=== PATIENT | male | born 1955 | race Hispanic/Latino ===

== ENCOUNTER 2016-02-28 14:24 | Inpatient (IN) | payer OTHER ==
[2016-02-28] MEDS ORDERED: SENOKOT PO PRN (14:28)
[2016-02-28] MEDS ORDERED: D50W (25GM) IV PRN (14:28)
[2016-02-28] MEDS ORDERED: TYLENOL PO PRN (14:28)
--- NOTE | 2016-02-28 16:18 | History and Physical Report ---
History of Present Illness Date: 02/28/16 Referring Facility: [facility] Date of admission: 02/28/16 14:24 Chief Complaint: acute respiratory failure History of present illness: POST ADMISSION PHYSICIAN EVALUATION ONSET DATE: 12/28/2015 IMPAIRMENT GROUP CODE: 16 ETIOLOGIC DIAGNOSIS: Debility secondary to acute respiratory failure STATUS CHANGES SINCE PREADMISSION SCREENING: PAS has been reviewed. In comparison, pt reports slowly improving strength; improving po intake, however, eating small frequent meals; now off TPN and advanced to regular diet with thin liquids. He remains on oxygen via nasal cannula. Pt continues with functional deficits; remains an appropriate candidate for IPR admission. PREVIOUS FUNCTIONAL STATUS: Independent with gait, transfers, ADLs CURRENT FUNCTIONAL STATUS: Per PAS, S/u to modA for ADLS; modA for transfers; PT/OT and swallowing evaluation to be completed in AM to update functional status HPI 60 y.o. male recently diagnosed with non-Hodgkin's lymphoma in September 2015 and undergoing intermittent chemotherapy, who presented to [facility] secondary to progressive worsening of shortness of breath. Pt treated for acute respiratory failure due to bilateral pneumocystitis pneumonia; requiring intubation, treated with bactrim and high dose steroids. Acute care course was further complicated by noted bowel perforation, ? secondary to chemotherapy, requiring ex lap, abdominal washout, and partial gastrectomy; pleural effusion, s/p thoracentesis. Pt was unable to be weaned from the vent; transferred to [facility] on 01/30/2016. Pt completed course of ABX while on LTAC ; weaned off vent to nasal cannula; progressed from TPN to regular diet; initiated on lopressor due to tachycardia; wound care for stage 2 sacral decubitus ulcer. Pt noted to have significant decline in functional mobility. Pt is now admitted to IRU for aggressive therapies and ongoing medical management. Past History Past Medical History: cancer (large B cell lymphoma), hypertension, hypothyroidism, other (PTSD, chron's disease, fatty liver, gallstones, kidney stones, BPH, splenic mass, left renal mass) Past Surgical History: tonsillectomy, Other (spleen biopsy, multiple thoracentesis, port placement, bone marrow biopsy) Social history: , lives with family. denies: smoking (quit 32 years ago) , alcohol abuse Family history: CAD, diabetes, hypertension, other (renal disease) Medications and Allergies Active Meds: Active Medications Acetaminophen (Tylenol) 650 mg PO Q4H PRN PRN Reason: Pain MILD(1-3)/Fever >100.5/ESPARZA Dextrose (D50w (25gm)) 50 ml IV PRN PRN PRN Reason: Hypoglycemia Escitalopram Oxalate (Lexapro) 10 mg PO QDAY SEVEN Finasteride (Proscar) 5 mg PO QDAY SEVEN Heparin Sodium (Porcine) (Heparin) 5,000 unit SUB-Q Q8HR SEVEN Insulin Human Regular (Novolin R) 0 units SUB-Q ACHS SEVEN PRN Reason: Protocol Lactobacillus Rhamnosus (Culturelle) 2 each PO QDAY SEVEN Levothyroxine Sodium (Synthroid) 125 mcg PO DAILY@0600 SEVEN Metoprolol Tartrate (Lopressor) 50 mg PO BID SEVEN Pantoprazole Sodium (Protonix) 40 mg PO BID SEVEN Senna (Senokot) 8.6 mg PO Q12H PRN PRN Reason: Laxative Effect Sodium Bicarbonate (Sodium Bicarbonate) 1,300 mg PO BID SEVEN Tamsulosin HCl (Flomax) 0.4 mg PO QDAY SEVEN Trazodone HCl (Desyrel) 25 mg PO QHS PRN PRN Reason: Insomnia Review of Systems All systems: negative Constitutional: poor appetite Ears, nose, mouth and throat: no headache Cardiovascular: no chest pain, no lightheadedness Respiratory: dyspnea on exertion, no cough, no shortness of breath Gastrointestinal: no nausea, no vomiting, no constipation Genitourinary Male: no dysuria Musculoskeletal: gait dysfunction Neurological: weakness Psychiatric: anxiety, insomnia Exam - Constitutional General appearance: no acute distress, obese, other ( present) - EENT Eyes: EOM intact ENT: hearing intact - Neck Neck: supple, normal ROM - Respiratory Respiratory effort: normal Respiratory: bilateral: CTA - Cardiovascular Rhythm: regular Heart Sounds: Present: S1 & S2 - Extremities Extremities: No edema - Gastrointestinal General gastrointestinal: Present: soft, non-tender, non-distended, normal bowel sounds - Integumentary Integumentary: Present: erythema (stage 2 sacral ulcer) - Musculoskeletal Musculoskeletal: strength equal bilaterally - Neurologic Neurologic: CNII-XII intact, moves all extremities, other (sensation grossly intact) - Psychiatric Psychiatric: appropriate mood/affect, intact judgment & insight, memory intact, cooperative Assessment and Plan Assessment and plan: 60 y.o. male with diffuse large B-cell lymphoma admitted to IRU with general debility s/p prolonged acute care and LTACH admissions for Pneumocystis jirovecii pneumonia and gastric perforation with diffuse peritonitis; respiratory failure, now on nasal cannula. The patient is medically stable, however, requires ongoing medical management. Pt is appropriate for inpatient rehabilitation admission and is thought to be able to tolerate at least 3 hours of therapy a day, 5 days a week including 1 hour of physical therapy, 1 hour of occupational therapy, and 1 hour of speech therapy. Patient is able to understand and follow basic directions and has attainable rehab goals. Potential barriers/complications include falls, aspiration, respiratory distress /failure, anxiety/depression, DVT, PE, recurrent pleural effusion, hypotension, syncope. Plan 1. Rehabilitation- Pt will undergo multidisciplinary/integrative rehab PT/OT/ PLASTER FOREMAN, Nursing. Areas to be addressed include, but are not limited to PT for mobility, strengthening, transfer training, ROM, endurance, stairs, balance; OT for ADLs, household tasks, adaptive equipment; PLASTER FOREMAN for swallowing and cognitive evaluation; Nursing for carryover of therapies, pain control, education, skin integrity, medication management, bowel/bladder management; Nutrition as needed ; retail services professional for discharge planning and equipment needs. Potential interventions include appropriate assistive device or adaptive equipment. Expected overall level of functional improvement by discharge is Shar to supervision for ADLs, gait, and transfers. Pt will tentatively be discharged home with outpatient PT. Estimated length of stay is 1-2 weeks. 2. Debility- aggressive PT/OT to address decline in functional independence with self cares and mobility; will also have PLASTER FOREMAN complete swallowing evaluation as pt was recently transitioned to thin liquids without complete PLASTER FOREMAN evaluation. Also will have PLASTER FOREMAN complete cognitive screening as pt reports some memory deficits since hospitalization. 3. acute respiratory failure- pt remains on oxygen via nasal cannula; not on oxygen prior to recent hospital course; will wean as tolerated; completed course of ABX while on LTAC 4. Obtain labs in AM- anemia, acute renal failure and blood sugars treated while in acute care and LTACH; pt denies any history of DM, however, was on high dose steroids. Will obtain HgA1c in AM 5. Anxiety/PTSD- pt on lopressor due to tachycardia likely secondary to anxiety ; however, blood pressure is running low on admission. Will reduce dose and continue to follow; avoid hypotension; continue lexapro 6. hypothyroidism- continue levothyroixine 7. GI/DVT px- protonix/heparin - Patient Problems (1) Debility Current Visit: Yes Status: Acute (2) Acute respiratory failure Current Visit: Yes Status: Acute Qualifiers: Respiratory failure complication: hypoxia Qualified Code(s): J96.01 - Acute respiratory failure with hypoxia (3) Anxiety Current Visit: Yes Status: Acute (4) PTSD (post-traumatic stress disorder) Current Visit: Yes Status: Acute (5) Hypothyroid Current Visit: Yes Status: Acute Qualifiers: Hypothyroidism type: acquired Qualified Code(s): E03.9 - Hypothyroidism, unspecified
[2016-02-28] MEDS: SODIUM BICARBONATE PO SCH (22:00)
[2016-02-28] MEDS: PROTONIX PO SCH (22:00)
[2016-02-28] MEDS: HEPARIN SUB-Q SCH (22:00)
[2016-02-28] MEDS ORDERED: LOPRESSOR PO SCH (22:00)
[2016-02-28] MEDS: LOPRESSOR PO SCH (22:00)
[2016-02-29 05:20] LABS: Alanine Aminotransferase 13 units/L (7-56); Albumin 2.5 g/dL (3.9-5); Alkaline Phosphatase 82 units/L (35-129); Anion Gap 16 mmol/L; BUN/Creatinine Ratio 21.42; Bilirubin,Total 0.2 mg/dL (0.1-1.2); Blood Urea Nitrogen 15 mg/dL (9-20); Calcium 8.4 mg/dL (8.4-10.2); Carbon Dioxide 28 mmol/L (22-30); Chloride 96.5 mmol/L (98-107); Glucose 99 mg/dL (75-100); Potassium 3.4 mmol/L (3.6-5.0); Sodium 137 mmol/L (137-145); Total Protein 5.1 g/dL (6.3-8.2)
[2016-02-29 05:23] LABS: Basophils % (Auto) 0.6 % (0.0-1.8); Eosinophils % (Auto) 3.6 % (0.0-4.3); Hematocrit 25.7 % (35.5-45.6); Hemoglobin 8.5 gm/dl (11.8-15.2); Mean Corpuscular HGB Conc 33 % (32-34); Mean Corpuscular Hemoglobin 29 pg (28-32); Mean Corpuscular Volume 87 fl (84-94); Platelet Count 353 K/mm3 (140-440); Red Blood Count 2.97 M/mm3 (3.65-5.03); Red Cell Distribution Width 16.5 % (13.2-15.2); White Blood Count 13.3 K/mm3 (4.5-11.0)
[2016-02-29] MEDS: HEPARIN SUB-Q SCH ×3 (06:00→22:21)
[2016-02-29] MEDS: SYNTHROID PO SCH (06:51)
[2016-02-29] MEDS: LOPRESSOR PO SCH ×2 (08:00→22:19)
[2016-02-29] MEDS: SODIUM BICARBONATE PO SCH ×2 (09:34→22:16)
[2016-02-29] MEDS: CULTURELLE PO SCH (09:36)
[2016-02-29] MEDS: PROSCAR PO SCH (09:36)
[2016-02-29] MEDS: FLOMAX PO SCH (09:37)
[2016-02-29] MEDS: LEXAPRO PO SCH (09:37)
[2016-02-29] MEDS: PROTONIX PO SCH ×2 (09:38→22:20)
[2016-02-29] MEDS: K-DUR PO SCH ×2 (09:45→18:38)
--- NOTE | 2016-02-29 15:19 | Progress Note ---
Assessment and Plan 60 y.o. male with diffuse large B-cell lymphoma, general debility s/p prolonged acute care and LTACH admissions for Pneumocystis jirovecii pneumonia and gastric perforation with diffuse peritonitis; respiratory failure, now on nasal cannula - Debility- pt tolerated therapies on today; noted to have some anxiety at times , low endurance; continue PT/OT to address gait dysfunction, decreased balance and endurance; pending MBS to evaluate for dysphagia and r/o silent aspiration with history of recent intubation/hoarse voice - acute respiratory failure- wean oxygen as pt not on at home prior to admission - acute blood loss anemia- follow - leukocytosis- check UA, C&S; afebrile; follow - Anxiety/PTSD- low BP this AM; lopressor again reduced to avoid hypotension; pt continues with anxiety induced tachycardia intermittently; continue lexapro - hypokalemia- KDur; follow - GI/DVT px- protonix/heparin - Patient Problems (1) Debility Current Visit: Yes Status: Acute (2) Acute respiratory failure Current Visit: Yes Status: Acute Qualifiers: Respiratory failure complication: hypoxia Qualified Code(s): J96.01 - Acute respiratory failure with hypoxia (3) Anxiety Current Visit: Yes Status: Acute (4) PTSD (post-traumatic stress disorder) Current Visit: Yes Status: Acute (5) Acute blood loss anemia Current Visit: Yes Status: Acute (6) Hypokalemia Current Visit: Yes Status: Acute (7) Unsteady gait Current Visit: Yes Status: Acute Subjective Date of service: 02/29/16 Principal diagnosis: Debility Interval history: Pt seen in gym and dining room on today; IPR F/U, s/p acute respiratory failure secondary to pneumonia and gastric perforation with diffuse peritonitis. Pt reports sleeping ok on last night; labs reviewed with both patient and ; educated on process of weaning down oxygen Objective - Constitutional Vitals: Vital Signs - 12hr 02/29/16 02/29/16 08:00 10:00 Temperature 98.2 F Pulse Rate [ 100 H Right Brachial] Respiratory 20 Rate Blood Pressure 98/66 [Right Arm] O2 Sat by Pulse 94 94 Oximetry General appearance: Present: no acute distress - EENT Eyes: EOM intact ENT: hearing intact - Neck Neck: supple, normal ROM - Respiratory Respiratory effort: normal Respiratory: bilateral: CTA - Cardiovascular Heart Sounds: Present: S1 & S2 (tachy) - Gastrointestinal General gastrointestinal: Present: non-distended, normal bowel sounds - Integumentary Integumentary: clear - Neurologic Neurologic: CNII-XII intact, moves all extremities - Psychiatric Psychiatric: appropriate mood/affect, cooperative - Allied health notes Allied health notes reviewed: PT (supervision to modA for bed mobility; modA for transfers and gait), OT (s/u to maxA for ADLs) - Labs CBC & Chem 7: 02/29/16 04:24 02/29/16 04:24 Labs: Abnormal lab results 02/28/16 02/29/16 02/29/16 Range/Units 17:27 04:24 04:24 WBC 13.3 H (4.5-11.0) K/mm3 RBC 2.97 L (3.65-5.03) M/mm3 Hgb 8.5 L (11.8-15.2) gm/dl Hct 25.7 L (35.5-45.6) % RDW 16.5 H (13.2-15.2) % [place] % (Auto) 14.4 H (0.0-7.3) % [place] # 1.9 H (0.0-0.8) K/mm3 Eos # 0.5 H (0.0-0.4) K/mm3 Seg Neutrophils # 9.0 H (1.8-7.7) K/mm3 Potassium 3.4 L (3.6-5.0) mmol/L Chloride 96.5 L (98-107) mmol/L Creatinine 0.7 L (0.8-1.5) mg/dL POC Glucose 121 H (70-105) Total Protein 5.1 L (6.3-8.2) g/dL Albumin 2.5 L (3.9-5) g/dL Prealbumin 0.140 L (0.200-0.400) g/L 02/29/16 Range/Units 11:31 WBC (4.5-11.0) K/mm3 RBC (3.65-5.03) M/mm3 Hgb (11.8-15.2) gm/dl Hct (35.5-45.6) % RDW (13.2-15.2) % [place] % (Auto) (0.0-7.3) % [place] # (0.0-0.8) K/mm3 Eos # (0.0-0.4) K/mm3 Seg Neutrophils # (1.8-7.7) K/mm3 Potassium (3.6-5.0) mmol/L Chloride (98-107) mmol/L Creatinine (0.8-1.5) mg/dL POC Glucose 111 H (70-105) Total Protein (6.3-8.2) g/dL Albumin (3.9-5) g/dL Prealbumin (0.200-0.400) g/L
[2016-02-29 16:25] LABS: Bilirubin,Urine NEG (Negative); Blood,Urine SM (Negative); Ketones,Urine NEG (Negative); Leukocyte Esterase,Urine LG (Negative); Nitrite,Urine POS (Negative); Protein,Urine <15 mg/dL mg/dL (Negative); Urobilinogen,Urine < 2.0 mg/dL (<2.0)
[2016-02-29 16:26] LABS: Bacteria,Urine 2+ /HPF (Negative)
[2016-02-29] MEDS: DESYREL PO PRN (22:21)
--- NOTE | 2016-03-01 00:53 | Admit Criteria Form ---
Admission Criteria Documentation: RESPIRATORY FAILURE GRG Clinical Indications for Admission to Inpatient Care (Place 'X' for any and all applicable criteria): Hospital admission is needed for appropriate care of the patient because of acute respiratory failure or insufficiency as indicated by ANY ONE of the following(1)(2)(3)(4)(5)(6)(7)(8): [ X]I. Mechanical ventilation needed (acute invasive or noninvasive) [ ]II. Severe ventilation deficit as indicated by ANY ONE of the following (9) [ ]a) Respiratory acidosis (pH less than 7.32 and partial pressure of carbon dioxide greater than 40 mm Hg (5.3 kPa)) [ ]b) Partial pressure of carbon dioxide greater than 44 mm Hg (5.9 kPa ) (new) [ ]c) Airflow measurements less than 25% of predicted (eg, peak expiratory flow rate less than 100 L/minute) [ ]d) Forced vital capacity less than 15 mL/kg of ideal body weight, or 50% decrease in vital capacity from baseline [ ]III. Noncardiac pulmonary edema not resolving with rapid emergency treatment (8) [ ]IV. Severe respiratory distress as indicated by ANY ONE of the following: [ ]a) Severe tachypnea (respiratory rate greater than 30, greater than 45 for 6-month-old, greater than 60 for ) [ ]b) Severe hypoxemia (partial pressure of oxygen less than 50 mm Hg ( 6.7 kPa) on greater than 50% oxygen or partial pressure of oxygen to FIO2 ratio less than 200) [ ]c) Mental status deterioration from respiratory disease [ ]V. Airway obstruction or inadequate protection [A](10)(11) The original [employer] content created by [employer] has been revised. The portions of the content which have been revised are identified through the use of italic text or in bold, and [employer] has neither reviewed nor approved the modified material. All other unmodified content is copyright [employer]. Please see references footnoted in the original [employer] edition 2016 Admission Criteria Met: Yes
[2016-03-01] MEDS ORDERED: K-DUR PO SCH (05:00)
[2016-03-01] MEDS: SYNTHROID PO SCH (05:57)
[2016-03-01] MEDS: K-DUR PO SCH (05:57)
[2016-03-01] MEDS: LOPRESSOR PO SCH ×2 (08:30→22:48)
[2016-03-01] MEDS: LEXAPRO PO SCH (10:06)
[2016-03-01] MEDS: SODIUM BICARBONATE PO SCH ×2 (10:06→22:47)
[2016-03-01] MEDS: PROTONIX PO SCH ×2 (10:07→22:47)
[2016-03-01] MEDS: FLOMAX PO SCH (10:07)
[2016-03-01] MEDS: PROSCAR PO SCH (10:07)
[2016-03-01] MEDS: CULTURELLE PO SCH (10:08)
--- NOTE | 2016-03-01 11:11 | Fluoroscopy Report ---
Limited barium swallow: Examination performed in conjunction with speech therapy. Imaging of the patient in the sitting position laterally with multiple consistencies of material fed to the patient. There is a normal swallowing mechanism. No penetration or aspiration. Of note is virtual loss of the C5-6 disc space.
--- NOTE | 2016-03-01 12:41 | IRU Plan of Care ---
Interdisciplinary Plan of Care - IP IRU INTERDISCIPLINARY PLAN: [facility] Inpatient Rehab Unit Plan of Care IRU Interdisciplinary Care Plan Start: 02/28/16 14: 50 Freq: Admission then PRN Status: Active Document 03/01/16 09:33 DB (Rec: 03/01/16 09:43 DB [id number]) Interdisciplinary Problem List Interdisciplinary Problem List Interdisciplinary Problem List Impaired Eating/Swallowing Query Text:Answers will Trigger Problems Impaired Bathing/Grooming and Outcomes on Worklist. Impaired Dressing Impaired Mobility Impaired Transfers Impaired Toileting Impaired Nutrition Pain Management Knowledge Deficits Impaired Skin/Tissue Integrity Impaired Safety Medications Education Impaired Oxygenation IRU Interdisciplinary Care Plan Therapy Services Therapy Services Will Include: Physical Therapy Query Text:Patient will be seen for a Occupational Therapy minimum of 3 hours of daily therapy 5 Speech Therapy out of 7 days a week. Therapy intensity may be adjusted within a 7 consecutive day period to effectively serve the individual needs of the patient. Treatment Frequency/Intensity/Duration Treatment Frequency 5 days per week Treatment Intensity 1 hour per discipline (PT/OT/ INSURANCE RISK ANALYST) daily Treatment Duration 14-21 days Problem Area: Eating/Swallowing Eating/Swallowing Outcomes Consume Least Restrictive Diet Eating/Swallowing Interventions Dysphagia Training Patient/Caregiver Education Problem Area: Bathing/Grooming Bathing/Grooming Outcomes Improve Bush w/ Grooming Improve Bush w/ Bathing Bathing/Grooming Interventions ADL Training Use of Assistive Devices Therapeutic Exercise Therapeutic Activity Balance Work Activity Tolerance Work Patient/Caregiver Education Problem Area: Dressing Dressing Outcomes Improve Bush w/ UB Dressing Improve Bush w/ LB Dressing Dressing Interventions ADL Training Use of Assistive Devices Therapeutic Exercise Balance Work Patient/Caregiver Education Problem Area: Mobility Mobility Outcomes Improve Bush w/ Bed Mobility Improve Bush w/ Ambulation Improve Bush w/ Stairs /Curb Improve Bush w/ Wheelchair Mobility Interventions Therapeutic Exercise Neuromuscular Re-Ed. Modalities Use of Assistive Devices Patient/Caregiver Education Bed Mobility Work Gait Training W/C Mobility Work Problem Area: Transfers Transfers Outcomes Improve Bush w/ Bed Transfers Improve Bush w/ Toilet Transfers Improve Bush w/ Tub/ Shower Transfers Improve Bush w/ Car Transfers Transfers Interventions Transfer Training Therapeutic Exercise Activity Tolerance Work Modalities Use of Assistive Devices Patient/Caregiver Education Problem Area: Bowel/Bladder Managment Bowel/Bladder Outcomes Remain free of UTI Bowel/Bladder Interventions Patient/Caregiver Education Problem Area: Toileting Toileting Outcomes Improve Bush w/ Toileting Toileting Interventions ADL Training Balance Work Use of Assistive Devices Patient/Caregiver Education Problem Area: Nutrition Nutrition Outcomes Understand and Comply w/ Diet Improve/Maintain Oral Intake Nutrition Interventions Nutritional Counseling Monitor Nutrient Intake Patient/Caregiver Education Problem Area: Comprehension Comprehension Outcomes Comprehension Interventions Problem Area: Expression Expression Outcomes Expression Interventions Problem Area: Problem Solving Problem Solving Outcomes Problem Solving Interventions Problem Area: Memory Memory Outcomes Memory Interventions Problem Area: Pain Management Pain Management Outcomes Demonstrate/Verbalize Pain Strategies Pain Management Interventions Positioning/Turning Patient/Caregiver Education Problem Area: Knowledge Deficits Knowledge Deficits Outcomes Verbalize Precautions Knowledge Deficits Interventions Medication Use Education Safety Education Problem Area: Skin/Tissue Integrity Skin/Tissue Integrity Outcomes Exhibit Healing of Wound/ Incision Demonstrate Understanding of Pressure Relief Skin/Tissue Integrity Interventions Skin/Wound Care Pressure Relief Instruction Positioning/Turning Problem Area: Social Interaction Social Interaction Outcomes Social Interaction Interventions Problem Area: Adjustment to Disability Adjustment to Disability Outcomes Adjustment to Disability Interventions Problem Area: Discharge Concerns Discharge Concerns Outcomes Discharge Home w/ Necessary Equipment Have Home Health/Outpatient Services Discharge Concerns Interventions Discharge Planning Family/Caregiver Conference Family/Caregiver Training Problem Area: Community Reintegration Community Reintegration Outcomes Demonstrate Understanding of Community Resources Community Reintegration Interventions Provide Community Resources Problem Area: Home Management Home Management Outcomes Improve Bush w/ Home Management Home Management Interventions Activity Tolerance Work Patient/Caregiver Education Problem Area: Safety Safety Outcomes Provide Safe Environment Safety Interventions Identify Fall Risk [place] Pt. to Environment Reduce Environmental Hazards Problem Area: Medication Education Medication Education Outcomes Patient/Caregiver will Verbalize Understanding of Medications Medication Education Interventions Explain Administration/Side Effects/Interactions Problem Area: Diabetes Education Diabetes Education Outcomes Diabetes Education Interventions Problem Area: Oxygenation Oxygenation Outcomes Maintain Adequate Oxygenation Oxygenation Interventions Assess Respiratory Status Encourage Coughing and Deep Breathing Problem Area: Cardiovascular Cardiovascular Outcomes Cardiovascular Interventions Physician Only Medical Prognosis and Rehabilitation Patient demonstrates good Potential (Completed by Physician) rehab potential. Medical Prognosis: Good This plan of care has been developed based on the findings from the pre- admission assessment, post admission physician evaluation, information gathered from the assessments from all therapy disciplines and other pertinent clinicians. The plan of care has been reviewed and discussed in collaboration with the interdisciplinary team. The plan of care will be reviewed and updated at least weekly. 60 y.o. male with diffuse large B-cell lymphoma admitted to IRU with general debility s/p prolonged acute care and LTACH admissions for Pneumocystis jirovecii pneumonia and gastric perforation with diffuse peritonitis; respiratory failure, now on nasal cannula. The patient remains at risk for falls, aspiration, respiratory distress/failure, anxiety/depression, DVT, PE, recurrent pleural effusion, hypotension, syncope. Continue to attempt to wean oxygen as pt is not on at home; noted to desat into 80s with gait training on today. Will continue to follow labs- potassium, H/H, and renal function. Pt is tolerating therapies and is very motivated to participate. Pt remains an appropriate candidate for IPR course.
--- NOTE | 2016-03-01 12:41 | Progress Note ---
Assessment and Plan 60 y.o. male with diffuse large B-cell lymphoma, general debility s/p prolonged acute care and LTACH admissions for Pneumocystis jirovecii pneumonia and gastric perforation with diffuse peritonitis; respiratory failure, now on nasal cannula - Debility- trials off oxygen today; noted to desat into 80s with and without oxygen - unsteady gait- continue gait training; 10 feet on evaluation, ambulated 30 feet on today; encouraged to attempt to improve gait distance daily - acute respiratory failure- wean oxygen as tolerated - acute blood loss anemia- labs in Am - leukocytosis- labs in AM; follow for Urine culture - Anxiety/PTSD- lopressor for anxiety induced tachycardia; BP stable at current dose; continue lexapro - hypokalemia- recheck in AM - GI/DVT px- protonix/heparin - Patient Problems (1) Debility Current Visit: Yes Status: Acute (2) Acute respiratory failure Current Visit: Yes Status: Acute Qualifiers: Respiratory failure complication: hypoxia Qualified Code(s): J96.01 - Acute respiratory failure with hypoxia (3) Anxiety Current Visit: Yes Status: Acute (4) PTSD (post-traumatic stress disorder) Current Visit: Yes Status: Acute (5) Acute blood loss anemia Current Visit: Yes Status: Acute (6) Hypokalemia Current Visit: Yes Status: Acute (7) Unsteady gait Current Visit: Yes Status: Acute Subjective Date of service: 03/01/16 Principal diagnosis: Debility Interval history: Pt seen in room on today; IPR F/U, s/p acute respiratory failure secondary to pneumonia and gastric perforation with diffuse peritonitis. Pt reports having a great day on today; continues with shortness of breath and fatigue with increased activity, however, improving Objective - Constitutional Vitals: Vital Signs - 12hr 03/01/16 03/01/16 07:27 08:00 Temperature 97.9 F Pulse Rate [ 105 H Right Brachial] Respiratory 20 Rate Blood Pressure 107/67 [Right Arm] O2 Sat by Pulse 91 92 Oximetry General appearance: Present: no acute distress, obese - EENT Eyes: EOM intact ENT: hearing intact - Neck Neck: supple, normal ROM - Respiratory Respiratory effort: normal Respiratory: bilateral: CTA - Cardiovascular Heart Sounds: Present: S1 & S2 Extremities: No edema - Gastrointestinal General gastrointestinal: Present: soft, non-tender, non-distended, normal bowel sounds - Integumentary Integumentary: clear - Neurologic Neurologic: CNII-XII intact, moves all extremities - Psychiatric Psychiatric: appropriate mood/affect, cooperative - Allied health notes Allied health notes reviewed: PT (modA for transfers; [place] for gait up to 30 feet), OT (modA for transfers; desat into 80s without oxygen) - Labs CBC & Chem 7: 02/29/16 04:24 02/29/16 04:24 Labs: Abnormal lab results 02/29/16 Range/Units 16:06 Urine WBC (Auto) 14.0 H (0.0-6.0) /HPF
[2016-03-01] MEDS: HEPARIN SUB-Q SCH (15:42)
[2016-03-02 04:44] LABS: Hemoglobin 8.6 gm/dl (11.8-15.2); Mean Corpuscular HGB Conc 33 % (32-34); Mean Corpuscular Hemoglobin 29 pg (28-32); Mean Corpuscular Volume 87 fl (84-94); Platelet Count 348 K/mm3 (140-440); Red Blood Count 2.98 M/mm3 (3.65-5.03); Red Cell Distribution Width 16.4 % (13.2-15.2); White Blood Count 10.7 K/mm3 (4.5-11.0)
[2016-03-02] MEDS: SYNTHROID PO SCH (06:16)
[2016-03-02] MEDS: HEPARIN SUB-Q SCH ×3 (06:17→22:24)
[2016-03-02] MEDS: FLOMAX PO SCH (08:57)
[2016-03-02] MEDS: SODIUM BICARBONATE PO SCH ×2 (08:57→22:21)
[2016-03-02] MEDS: LEXAPRO PO SCH (08:57)
[2016-03-02] MEDS: PROTONIX PO SCH ×2 (08:57→22:21)
[2016-03-02] MEDS: PROSCAR PO SCH (08:57)
[2016-03-02] MEDS: LOPRESSOR PO SCH ×2 (09:00→22:22)
[2016-03-02] MEDS: CULTURELLE PO SCH (09:01)
[2016-03-02] MEDS: DESYREL PO PRN (22:21)
[2016-03-03] MEDS: SYNTHROID PO SCH (06:13)
[2016-03-03] MEDS: HEPARIN SUB-Q SCH ×3 (06:51→22:52)
[2016-03-03] MEDS: LOPRESSOR PO SCH ×2 (08:00→21:35)
[2016-03-03] MEDS: PROTONIX PO SCH ×2 (08:27→21:37)
[2016-03-03] MEDS: FLOMAX PO SCH (08:28)
[2016-03-03] MEDS: PROSCAR PO SCH (08:29)
[2016-03-03] MEDS: SODIUM BICARBONATE PO SCH ×2 (08:29→21:35)
[2016-03-03] MEDS: LEXAPRO PO SCH (08:29)
[2016-03-03] MEDS: CULTURELLE PO SCH (08:30)
[2016-03-03] MEDS: MACROBID PO SCH (21:40)
[2016-03-03] MEDS: DESYREL PO PRN (21:40)
[2016-03-04] MEDS: SYNTHROID PO SCH (06:00)
[2016-03-04] MEDS: HEPARIN SUB-Q SCH ×4 (07:00→22:03)
[2016-03-04] MEDS: LOPRESSOR PO SCH ×2 (08:20→22:00)
[2016-03-04] MEDS: FLOMAX PO SCH (09:37)
[2016-03-04] MEDS: LEXAPRO PO SCH (09:37)
[2016-03-04] MEDS: PROTONIX PO SCH ×2 (09:38→21:51)
[2016-03-04] MEDS: PROSCAR PO SCH (09:38)
[2016-03-04] MEDS: CULTURELLE PO SCH (09:38)
[2016-03-04] MEDS: SODIUM BICARBONATE PO SCH ×2 (09:38→21:50)
[2016-03-04] MEDS: MACROBID PO SCH (09:38)
--- NOTE | 2016-03-04 13:12 | Progress Note ---
Assessment and Plan 60 y.o. male with diffuse large B-cell lymphoma, general debility s/p prolonged acute care and LTACH admissions for Pneumocystis jirovecii pneumonia and gastric perforation with diffuse peritonitis; respiratory failure, now on nasal cannula - Debility- continue aggressive therapies - unsteady gait- improving gait distance since admission - acute respiratory failure- wean oxygen as tolerated - acute blood loss anemia- H/H stable - leukocytosis- resolved - Pseudomonas UTI- resistant to oral meds; ID consult pending - Anxiety/PTSD- low BP this AM; lopressor held; continue lexapro - hypokalemia- resolved - GI/DVT px- protonix/heparin - Patient Problems (1) Debility Current Visit: Yes Status: Acute (2) Acute respiratory failure Current Visit: Yes Status: Acute Qualifiers: Respiratory failure complication: hypoxia Qualified Code(s): J96.01 - Acute respiratory failure with hypoxia (3) Anxiety Current Visit: Yes Status: Acute (4) PTSD (post-traumatic stress disorder) Current Visit: Yes Status: Acute (5) Acute blood loss anemia Current Visit: Yes Status: Acute (6) Unsteady gait Current Visit: Yes Status: Acute Subjective Date of service: 03/04/16 Principal diagnosis: Debility Interval history: Pt seen in room on today; IPR F/U, s/p acute respiratory failure secondary to pneumonia and gastric perforation with diffuse peritonitis. Pt reports nausea and vomiting this AM following therapies. Pt and informed of urine culture results, will get ID consult Objective - Constitutional Vitals: Vital Signs - 12hr 03/04/16 03/04/16 03/04/16 08:10 08:20 08:54 Temperature 97.7 F Pulse Rate 113 H Pulse Rate [ 113 H Right Brachial] Respiratory 20 Rate Blood Pressure 92/65 Blood Pressure 92/65 [Right Arm] O2 Sat by Pulse 98 96 Oximetry General appearance: Present: mild distress (due to nausea) - EENT Eyes: EOM intact ENT: hearing intact - Neck Neck: supple, normal ROM - Respiratory Respiratory effort: normal Respiratory: bilateral: CTA - Cardiovascular Heart Sounds: Present: S1 & S2 (tachy) Extremities: No edema - Gastrointestinal General gastrointestinal: Present: soft, tender (right lower quadrant discomfort ) - Integumentary Integumentary: clear - Musculoskeletal Musculoskeletal: generalized weakness - Neurologic Neurologic: CNII-XII intact, moves all extremities - Psychiatric Psychiatric: appropriate mood/affect, cooperative - Allied health notes Allied health notes reviewed: PT (Bonny for transfers and gait; pt reports ambulating 90 feet on this AM) - Labs CBC & Chem 7: 03/02/16 04:13 03/02/16 04:13
[2016-03-05] MEDS: SYNTHROID PO SCH (07:09)
[2016-03-05] MEDS: HEPARIN SUB-Q SCH ×4 (07:09→22:30)
[2016-03-05] MEDS: LOPRESSOR PO SCH ×2 (08:00→22:15)
--- NOTE | 2016-03-05 08:45 | Consultation ---
History of Present Illness - Reason for Consult Consult date: 03/05/16 UTI Requesting physician: JERARDO FOLEY - History of Present Illness This is a 60 year old man with large B cell lymphoma who is thought to be in remission. His last chemotherapy was 12/22/15. He was on high dose steroids at the time and presented to [facility] with difficulty breathing with associated radiographic findings of bilateral pulmonary infiltrates. Bronchoscopy found pneumocystis jirovecii pneumoniae. Patient did have a complicated course with multiple re-intubation while in the ICU. He did complete 21 days of iv bactrim with corticosteroids for pneumocystis. He was subsequently transferred to [facility]. Patient had a beach catheter while in the LTAC secondary to difficulty voiding with urine retention. Patient is now in rehab at [facility]. Patient reports that he is feeling better than he has been in the past couple of months. He is participating in physical therapy. His is reporting that his urine output has decreased and he is having burning when he urinates. He does not feel like his bladder is distended. Past History Past Medical History: cancer (large B cell lymphoma), hypertension, hypothyroidism, other (PTSD, chron's disease, fatty liver, gallstones, kidney stones, BPH, splenic mass, left renal mass) Past Surgical History: tonsillectomy, Other (spleen biopsy, multiple thoracentesis, port placement, bone marrow biopsy) Social history: , lives with family. denies: smoking (quit 32 years ago) , alcohol abuse Family history: CAD, diabetes, hypertension, other (renal disease) Medications and Allergies Allergies Allergy/AdvReac Type Severity Reaction Status Date / Time allopurinol Allergy Unknown Verified 02/28/16 16:42 Home Medications Medication Instructions Recorded Confirmed Last Taken Type No Known Home Medications [No 02/28/16 02/28/16 Unknown History Reported Home Medications] Active Meds: Active Medications Acetaminophen (Tylenol) 650 mg PO Q4H PRN PRN Reason: Pain MILD(1-3)/Fever >100.5/ESPARZA Escitalopram Oxalate (Lexapro) 10 mg PO QDAY [facility] Last Admin: 03/04/16 09:37 Dose: 10 mg Finasteride (Proscar) 5 mg PO QDAY [facility] Last Admin: 03/04/16 09:38 Dose: 5 mg Heparin Sodium (Porcine) (Heparin) 5,000 unit SUB-Q Q8HR [facility] Last Admin: 03/05/16 07:09 Dose: 5,000 unit Lactobacillus Rhamnosus (Culturelle) 2 each PO QDAY [facility] Last Admin: 03/04/16 09:38 Dose: 2 each Levothyroxine Sodium (Synthroid) 125 mcg PO DAILY@0600 [facility] Last Admin: 03/05/16 07:09 Dose: 125 mcg Metoprolol Tartrate (Lopressor) 12.5 mg PO BID [facility] Last Admin: 03/04/16 22:00 Dose: 12.5 mg Pantoprazole Sodium (Protonix) 40 mg PO BID [facility] Last Admin: 03/04/16 21:51 Dose: 40 mg Senna (Senokot) 8.6 mg PO Q12H PRN PRN Reason: Laxative Effect Sodium Bicarbonate (Sodium Bicarbonate) 1,300 mg PO BID [facility] Last Admin: 03/04/16 21:50 Dose: 1,300 mg Tamsulosin HCl (Flomax) 0.4 mg PO QDAY [facility] Last Admin: 03/04/16 09:37 Dose: 0.4 mg Trazodone HCl (Desyrel) 25 mg PO QHS PRN PRN Reason: Insomnia Last Admin: 03/03/16 21:40 Dose: 25 mg Review of Systems Constitutional: weakness, no weight loss, no weight gain, no fever, no chills, no sweats, no anorexia, no fatigue Ears, nose, mouth and throat: no ear pain, no ear discharge, no tinnitis, no dental pain, no mouth pain Cardiovascular: no chest pain, no palpitations, no edema, no claudication Respiratory: no cough with sputum, no excessive sputum, no shortness of breath, no wheezing, no pleurisy Gastrointestinal: no nausea, no vomiting, no diarrhea, no constipation, no melena Genitourinary Male: dysuria, urinary frequency, no flank pain, no nocturia Rectal: no pain, no incontinence Musculoskeletal: no neck stiffness, no neck pain, no shooting arm pain, no morning stiffness, no muscle weakness Integumentary: no pruritis, no redness, no sores, no lesions, no darkening of skin Neurological: no paralysis, no weakness, no parathesias, no headaches, no migraines Psychiatric: no memory loss, no change in sleep habits, no change in appetite, no depression, no hopelessness Physical Examination - Constitutional Vitals: Selected Entries 03/04/16 03/04/16 03/05/16 16:00 20:00 08:30 Temperature 98 F 98.4 F 98.0 F Pulse Rate [ 94 H Right Brachial] Respiratory 20 Rate O2 Sat by Pulse 94 Oximetry Blood Pressure 97/60 [Right Arm] Blood Pressure 72 Mean [Right Arm ] General appearance: Present: no acute distress, well-nourished - EENT Eyes: Present: PERRL, EOM intact. Absent: scleral icterus, conjunctival injection ENT: hearing intact, clear oral mucosa, dentition normal - Neck Neck: Present: supple, normal ROM. Absent: enlarged thyroid, masses or JVD - Respiratory Respiratory effort: normal Respiratory: bilateral: CTA - Cardiovascular Rhythm: regular Heart Sounds: Present: S1 & S2 - Extremities Extremities: no ischemia, pulses intact - Abdominal General gastrointestinal: Present: soft, non-tender, non-distended Male genitourinary: Present: deferred - Rectal Rectal Exam: deferred - Integumentary Integumentary: Present: clear, warm, dry. Absent: jaundice, rash - Musculoskeletal Musculoskeletal: strength equal bilaterally - Psychiatric Psychiatric: appropriate mood/affect, intact judgment & insight Results - Labs CBC & Chem 7: 03/02/16 04:13 03/02/16 04:13 Labs: Microbiology 02/29/16 16:06 Urine,Clean Catch Urine Culture - Final Pseudomonas Aeruginosa Laboratory Tests 02/29/16 02/29/16 03/02/16 04:24 16:06 04:13 WBC Plt Count Potassium 4.4 D Creatinine 0.7 L Estimated GFR > 60 Urine Nitrite Pos Urine Bilirubin Neg Ur Leukocyte Esterase Lg Urine WBC (Auto) 14.0 H 03/02/16 04:13 WBC 10.7 Plt Count 348 Potassium Creatinine Estimated GFR Urine Nitrite Urine Bilirubin Ur Leukocyte Esterase Urine WBC (Auto) Assessment and Plan Antibiotics: 1) nitrofurantoin 100mg po Q12H (03/03-03/04) This is a 60 year old man with large B cell lymphoma currently in remission who completed 21 days of treatment for pneumocystis jirovecii pneumoniae. Prolonged hospitalization with multiple complications including beach catheter related UTI. Patient had a urinalysis don on 02/29/16 revealing wbc of 14 and culture with multi-drug resistant Pseudomonas aeruginosa. Patient has some dysuria but afebrile, he feels that his urine output has decreased. 1) Pseudomonas aeruginosa cystitis with low pyuria (14), concerned that this might be colonization. Patient has had the same organism several weeks ago and received iv antibiotics while in the LTAC. He now has the beach catheter out. I am concerned however that the patient might be retaining urine. 2) Possible urinary retention, patient feels that he has decreasing urine output. He does have a history of BPH. Will do a bladder scan to check for residual 3) Large B cell lymphoma, believed to be in remission Plan: 1) obtain repeat urinalysis and culture prior to antibiotics 2) obtain bladder scan to check for residual 3) start zosyn 4.5 gm iv Q8H after urinalysis and culture 4) will give a short course of antibiotics, no more than 3 days 5) Thank you will follow
[2016-03-05] MEDS: LEXAPRO PO SCH (10:25)
[2016-03-05] MEDS: SODIUM BICARBONATE PO SCH ×2 (10:25→23:21)
[2016-03-05] MEDS: PROTONIX PO SCH ×2 (10:25→22:14)
[2016-03-05] MEDS: FLOMAX PO SCH (10:26)
[2016-03-05] MEDS: CULTURELLE PO SCH (10:30)
[2016-03-05] MEDS: PROSCAR PO SCH (11:00)
[2016-03-05 12:13] LABS: Bilirubin,Urine NEG (Negative); Blood,Urine SM (Negative); Ketones,Urine NEG (Negative); Leukocyte Esterase,Urine LG (Negative); Nitrite,Urine POS (Negative); Urobilinogen,Urine < 2.0 mg/dL (<2.0)
[2016-03-05 12:15] LABS: WBC,Urine > 182.0 /HPF (0.0-6.0)
--- NOTE | 2016-03-05 13:44 | Progress Note ---
Assessment and Plan 60 y.o. male with diffuse large B-cell lymphoma, general debility s/p prolonged acute care and LTACH admissions for Pneumocystis jirovecii pneumonia and gastric perforation with diffuse peritonitis; respiratory failure, now on nasal cannula - unsteady gait- ambulated 10 feet on initial evaluation; now ambulating up to 120 feet - acute respiratory failure- wean oxygen as tolerated - acute blood loss anemia- recheck labs in AM - Pseudomonas UTI- appreciate ID consult; repeat UA, C&S ordered; bladder scan - Anxiety/PTSD- low BP again this AM, lopressor again held; continue lexapro - GI/DVT px- protonix/heparin - team conference held this AM- pt is Shar for eating, grooming, UB dressing; supervision for bathing and wheelchair mobility; modA for LB dressing, toilet and shower transfers; maxA for toileting; SBA to Bonny to bed mobility; CGA-Bonny for bed/chair/WC transfers, ambulating 120 feet RW with CGA, CGA for 4 stairs. Barriers- proximal weakness with transfers, ongoing oxygen requirement, hypotension; attempt to wean oxygen; continue to modify medications to prevent hypotension. Tentative d/c date set for 03/11. - Patient Problems (1) Debility Current Visit: Yes Status: Acute (2) Acute respiratory failure Current Visit: Yes Status: Acute Qualifiers: Respiratory failure complication: hypoxia Qualified Code(s): J96.01 - Acute respiratory failure with hypoxia (3) Anxiety Current Visit: Yes Status: Acute (4) PTSD (post-traumatic stress disorder) Current Visit: Yes Status: Acute (5) Acute blood loss anemia Current Visit: Yes Status: Acute (6) Unsteady gait Current Visit: Yes Status: Acute Subjective Date of service: 03/05/16 Principal diagnosis: Debility Interval history: Pt seen in room on today; IPR F/U, s/p acute respiratory failure secondary to pneumonia and gastric perforation with diffuse peritonitis. No further nausea or vomiting reported on today; +BM on yesterday. Appreciate ID consult, recommendations noted Objective - Constitutional Vitals: Vital Signs - 12hr 03/05/16 03/05/16 03/05/16 08:00 08:30 10:00 Temperature 98.0 F Pulse Rate 94 H Pulse Rate [ 94 H Right Brachial] Respiratory 20 Rate Blood Pressure 97/60 Blood Pressure 97/60 [Right Arm] O2 Sat by Pulse 94 94 Oximetry General appearance: Present: no acute distress, other ( present in room) - EENT Eyes: EOM intact ENT: hearing intact - Neck Neck: supple, normal ROM - Respiratory Respiratory effort: normal Respiratory: bilateral: CTA - Cardiovascular Rhythm: regular Heart Sounds: Present: S1 & S2 Extremities: No edema - Gastrointestinal General gastrointestinal: Present: non-tender, normal bowel sounds - Neurologic Neurologic: CNII-XII intact, moves all extremities - Psychiatric Psychiatric: appropriate mood/affect, cooperative - Labs CBC & Chem 7: 03/02/16 04:13 03/02/16 04:13 Labs: Abnormal lab results 03/05/16 Range/Units 11:45 Urine WBC (Auto) > 182.0 H (0.0-6.0) /HPF
[2016-03-05] MEDS: ZOSYN/NS 4.5GM/100ML 100 ML IV SCH ×2 (18:29→23:19)
[2016-03-06] MEDS: ZOSYN/NS 4.5GM/100ML 100 ML IV SCH ×3 (06:12→22:30)
[2016-03-06] MEDS: SYNTHROID PO SCH (06:12)
[2016-03-06] MEDS: HEPARIN SUB-Q SCH ×2 (06:13→15:04)
[2016-03-06 07:18] LABS: Hematocrit 27.2 % (35.5-45.6); Hemoglobin 8.7 gm/dl (11.8-15.2); Mean Corpuscular HGB Conc 32 % (32-34); Mean Corpuscular Hemoglobin 28 pg (28-32); Mean Corpuscular Volume 87 fl (84-94); Platelet Count 358 K/mm3 (140-440); Red Blood Count 3.11 M/mm3 (3.65-5.03); Red Cell Distribution Width 16.4 % (13.2-15.2)
[2016-03-06 07:39] LABS: BUN/Creatinine Ratio 8.18; Blood Urea Nitrogen 9 mg/dL (9-20); Calcium 8.2 mg/dL (8.4-10.2); Carbon Dioxide 28 mmol/L (22-30); Chloride 100.7 mmol/L (98-107); Glucose 95 mg/dL (75-100); Sodium 142 mmol/L (137-145)
[2016-03-06 07:40] LABS: Anion Gap 17 mmol/L
[2016-03-06] MEDS: CULTURELLE PO SCH (08:30)
[2016-03-06] MEDS: LEXAPRO PO SCH (08:31)
[2016-03-06] MEDS: PROTONIX PO SCH ×2 (08:32→22:00)
[2016-03-06] MEDS: SODIUM BICARBONATE PO SCH (08:32)
[2016-03-06] MEDS: FLOMAX PO SCH (08:32)
[2016-03-06] MEDS: LOPRESSOR PO SCH (08:33)
--- NOTE | 2016-03-06 11:14 | Progress Note ---
Assessment and Plan Antibiotics: 1) zosyn 4.5 gm iv Q8h (03/05 Previous Antibiotics: 1) nitrofurantoin 100mg po Q12H (03/03-03/04) This is a 60 year old man with large B cell lymphoma currently in remission who completed 21 days of treatment for pneumocystis jirovecii pneumoniae. Prolonged hospitalization with multiple complications including beach catheter related UTI. Patient had a urinalysis don on 02/29/16 revealing wbc of 14 and culture with multi-drug resistant Pseudomonas aeruginosa. Patient has some dysuria but afebrile, he feels that his urine output has decreased. 1) Pseudomonas aeruginosa cystitis with low pyuria (14), concerned that this might be colonization. Patient has had the same organism several weeks ago and received iv antibiotics while in the LTAC. He now has the beach catheter out. I am concerned however that the patient might be retaining urine. --repeat urinalysis revealed wbc of greater 182 2) Possible urinary retention, patient feels that he has decreasing urine output. He does have a history of BPH. Will do a bladder scan to check for residual --post void residual done, no residual urine seen on bladder ultrasound 3) Large B cell lymphoma, believed to be in remission Plan: 1) continue zosyn to complete 3 days 2) post void residual with negative bladder scan Subjective Date of service: 03/06/16 Principal diagnosis: Debility Interval history: Patient is happy to be going home on friday, he has no new complaints Objective - Constitutional Vitals: Selected Entries 03/06/16 03/06/16 08:33 08:35 Temperature 98.3 F Pulse Rate 90 Respiratory 20 Rate O2 Sat by Pulse 93 Oximetry Blood Pressure 100/60 [Right Arm] Blood Pressure 73 Mean [Right Arm ] General appearance: Present: no acute distress, well-nourished - EENT Eyes: PERRL, EOM intact, no scleral icterus, no conjunctival injection ENT: hearing intact, clear oral mucosa - Neck Neck: supple, normal ROM, no enlarged thyroid, no masses or JVD - Respiratory Respiratory effort: normal Respiratory: bilateral: rales - Breasts Breasts: deferred - Cardiovascular Rhythm: regular Heart Sounds: Present: S1 & S2 Extremities: no ischemia, No edema - Gastrointestinal General gastrointestinal: Present: soft, non-tender, normal bowel sounds Rectal Exam: deferred - Genitourinary Male genitourinary: deferred - Integumentary Integumentary: clear, warm - Musculoskeletal Musculoskeletal: strength equal bilaterally - Neurologic Neurologic: moves all extremities - Labs CBC & Chem 7: 03/06/16 06:48 03/06/16 06:48 Labs: Microbiology 02/29/16 16:06 Urine,Clean Catch Urine Culture - Final Pseudomonas Aeruginosa Laboratory Tests 02/29/16 03/05/16 03/06/16 16:06 11:45 06:48 WBC 10.0 Plt Count 358 Creatinine Estimated GFR Urine Nitrite Pos Urine Bilirubin Neg Urine Urobilinogen < 2.0 Urine WBC (Auto) 14.0 H > 182.0 H 03/06/16 06:48 WBC Plt Count Creatinine 1.1 Estimated GFR > 60 Urine Nitrite Urine Bilirubin Urine Urobilinogen Urine WBC (Auto)
[2016-03-06] MEDS ORDERED: PHENERGAN PO PRN (13:52)
--- NOTE | 2016-03-06 13:57 | Progress Note ---
Assessment and Plan 60 y.o. male with diffuse large B-cell lymphoma, general debility s/p prolonged acute care and LTACH admissions for Pneumocystis jirovecii pneumonia and gastric perforation with diffuse peritonitis; respiratory failure, now on nasal cannula - unsteady gait- tolerating gait training with improved gait distance and less shortness of breath - acute respiratory failure- weaning oxygen as tolerated - acute blood loss anemia- H/H remains stable - Pseudomonas UTI- appreciate ID consult; bladder scan negative, urine culture pending; on IV Zosyn x 3 days total - Anxiety/PTSD- continue lexapro; less anxious - hypotension- d/c lopressor; follow HR - GI/DVT px- protonix/heparin - Patient Problems (1) Debility Current Visit: Yes Status: Acute (2) Acute respiratory failure Current Visit: Yes Status: Acute Qualifiers: Respiratory failure complication: hypoxia Qualified Code(s): J96.01 - Acute respiratory failure with hypoxia (3) Anxiety Current Visit: Yes Status: Acute (4) PTSD (post-traumatic stress disorder) Current Visit: Yes Status: Acute (5) Acute blood loss anemia Current Visit: Yes Status: Acute (6) Unsteady gait Current Visit: Yes Status: Acute Subjective Date of service: 03/06/16 Principal diagnosis: Debility Interval history: Pt seen in dining room on today; IPR F/U, s/p acute respiratory failure secondary to pneumonia and gastric perforation with diffuse peritonitis. One episode of nausea late this AM; minimal associated vomitus Objective - Constitutional Vitals: Vital Signs - 12hr 03/06/16 03/06/16 08:33 08:35 Temperature 98.3 F Pulse Rate 90 Pulse Rate [ 90 Right Brachial] Respiratory 20 Rate Blood Pressure 100/60 [Right Arm] O2 Sat by Pulse 93 Oximetry General appearance: Present: mild distress (secondary to nausea) - EENT Eyes: EOM intact ENT: hearing intact - Neck Neck: supple, normal ROM - Respiratory Respiratory effort: normal Respiratory: bilateral: CTA - Cardiovascular Heart Sounds: Present: S1 & S2 Extremities: No edema - Gastrointestinal General gastrointestinal: Present: soft, non-tender, non-distended, normal bowel sounds - Neurologic Neurologic: CNII-XII intact, moves all extremities - Psychiatric Psychiatric: cooperative - Allied health notes Allied health notes reviewed: PT (CGA for transfers and gait), OT (Bonny for WC transfers) - Labs CBC & Chem 7: 03/06/16 06:48 03/06/16 06:48 Labs: Abnormal lab results 03/06/16 03/06/16 Range/Units 06:48 06:48 RBC 3.11 L (3.65-5.03) M/mm3 Hgb 8.7 L (11.8-15.2) gm/dl Hct 27.2 L (35.5-45.6) % RDW 16.4 H (13.2-15.2) % Calcium 8.2 L (8.4-10.2) mg/dL
[2016-03-07] MEDS: HEPARIN SUB-Q SCH ×4 (00:18→21:52)
[2016-03-07] MEDS: SYNTHROID PO SCH (06:50)
[2016-03-07] MEDS: ZOSYN/NS 4.5GM/100ML 100 ML IV SCH ×3 (06:51→21:45)
[2016-03-07] MEDS: PROTONIX PO SCH ×2 (09:19→21:43)
[2016-03-07] MEDS: FLOMAX PO SCH (09:20)
[2016-03-07] MEDS: CULTURELLE PO SCH (09:20)
[2016-03-07] MEDS: LEXAPRO PO SCH (09:20)
--- NOTE | 2016-03-07 11:56 | Progress Note ---
Assessment and Plan Antibiotics: 1) zosyn 4.5 gm iv Q8h (03/05 Previous Antibiotics: 1) nitrofurantoin 100mg po Q12H (03/03-03/04) This is a 60 year old man with large B cell lymphoma currently in remission who completed 21 days of treatment for pneumocystis jirovecii pneumoniae. Prolonged hospitalization with multiple complications including beach catheter related UTI. Patient had a urinalysis don on 02/29/16 revealing wbc of 14 and culture with multi-drug resistant Pseudomonas aeruginosa. Patient has some dysuria but afebrile, he feels that his urine output has decreased. 1) Pseudomonas aeruginosa cystitis with low pyuria (14), concerned that this might be colonization. Patient has had the same organism several weeks ago and received iv antibiotics while in the LTAC. He now has the beach catheter out. I am concerned however that the patient might be retaining urine. --repeat urinalysis revealed wbc of greater 182 --patient completing a short course of zosyn 2) Possible urinary retention, patient feels that he has decreasing urine output. He does have a history of BPH. Will do a bladder scan to check for residual --post void residual done, no residual urine seen on bladder ultrasound 3) Large B cell lymphoma, believed to be in remission Plan: 1) continue zosyn to complete 3 days 2) post void residual with negative bladder scan 3) no further infectious disease input, please call with questions and concerns Subjective Date of service: 03/07/16 Principal diagnosis: Debility Interval history: Patient is doing well, no new complaints Objective - Constitutional Vitals: Vital Signs Temp Pulse Resp BP Pulse Ox 97.1 F L 84 20 96/61 96 03/07/16 08:00 03/07/16 08:00 03/07/16 08:00 03/07/16 08:00 03/07/16 08:00 Temperature -Last 24 Hours Temperature 97.1 F Temperature 97.8 F Temperature 97.8 F Temperature 98.9 F General appearance: Present: no acute distress, well-nourished - EENT Eyes: PERRL, EOM intact, no scleral icterus, no conjunctival injection ENT: hearing intact, clear oral mucosa, no oropharyngeal erythema - Neck Neck: supple, normal ROM - Respiratory Respiratory: bilateral: CTA - Breasts Breasts: deferred - Cardiovascular Rhythm: regular Heart Sounds: Present: S1 & S2 Extremities: no ischemia, pulses intact - Gastrointestinal General gastrointestinal: Present: soft, normal bowel sounds. Absent: non- tender Rectal Exam: deferred - Genitourinary Male genitourinary: deferred - Integumentary Integumentary: clear, warm, dry - Musculoskeletal Musculoskeletal: strength equal bilaterally - Labs CBC & Chem 7: 03/06/16 06:48 03/06/16 06:48
--- NOTE | 2016-03-07 14:45 | Progress Note ---
Assessment and Plan 60 y.o. male with diffuse large B-cell lymphoma, general debility s/p prolonged acute care and LTACH admissions for Pneumocystis jirovecii pneumonia and gastric perforation with diffuse peritonitis; respiratory failure, now on nasal cannula - unsteady gait- now ambulating up to 170 feet - acute respiratory failure- weaning oxygen as tolerated - acute blood loss anemia- stable - Pseudomonas UTI- to complete IV Zosyn on today (3 day course per ID recommendations) - Anxiety/PTSD- continue lexapro; less anxious; HR stable overnight - hypotension- low BP this AM; lopressor discontinued on yesterday; TEDs to BLE - GI/DVT px- protonix/heparin - tentative d/c home on Friday - Patient Problems (1) Debility Current Visit: Yes Status: Acute (2) Acute respiratory failure Current Visit: Yes Status: Acute Qualifiers: Respiratory failure complication: hypoxia Qualified Code(s): J96.01 - Acute respiratory failure with hypoxia (3) Anxiety Current Visit: Yes Status: Acute (4) PTSD (post-traumatic stress disorder) Current Visit: Yes Status: Acute (5) Acute blood loss anemia Current Visit: Yes Status: Acute (6) Unsteady gait Current Visit: Yes Status: Acute Subjective Date of service: 03/07/16 Principal diagnosis: Debility Interval history: Pt seen in dining room on today with ; IPR F/U, s/p acute respiratory failure secondary to pneumonia and gastric perforation with diffuse peritonitis. Nausea resolved on last night after one dose of phenergan; slept well. No dizziness or lightheadedness Objective - Constitutional Vitals: Vital Signs - 12hr 03/07/16 03/07/16 03/07/16 06:00 08:00 10:00 Temperature 97.8 F 97.1 F L Pulse Rate [ 84 Left Brachial] Pulse Rate [ 86 Right Brachial] Pulse Rate [ 86 Right Radial] Respiratory 18 20 Rate Blood Pressure 96/61 [Left Arm] Blood Pressure 109/68 [Right Arm] O2 Sat by Pulse 94 96 98 Oximetry General appearance: Present: no acute distress - EENT Eyes: EOM intact ENT: hearing intact - Neck Neck: supple, normal ROM - Respiratory Respiratory effort: normal Extremities: No edema - Gastrointestinal General gastrointestinal: Present: soft, non-tender - Neurologic Neurologic: CNII-XII intact, moves all extremities - Psychiatric Psychiatric: appropriate mood/affect, cooperative - Allied health notes Allied health notes reviewed: PT (CGA for gait, transfers, and stairs), OT ( Bonny for dressing and transfers) - Labs CBC & Chem 7: 03/06/16 06:48 03/06/16 06:48
[2016-03-07] MEDS: FLONASE NS SCH (15:27)
[2016-03-07] MEDS: DESYREL PO PRN (21:43)
[2016-03-08] MEDS: SYNTHROID PO SCH (06:05)
[2016-03-08] MEDS: HEPARIN SUB-Q SCH ×3 (06:05→21:52)
[2016-03-08] MEDS: FLONASE NS SCH (08:29)
[2016-03-08] MEDS: FLOMAX PO SCH (08:30)
[2016-03-08] MEDS: PROTONIX PO SCH ×2 (08:30→21:52)
[2016-03-08] MEDS: LEXAPRO PO SCH (08:30)
[2016-03-08] MEDS: CULTURELLE PO SCH (08:30)
--- NOTE | 2016-03-08 17:14 | Progress Note ---
Assessment and Plan 60 y.o. male with diffuse large B-cell lymphoma, general debility s/p prolonged acute care and LTACH admissions for Pneumocystis jirovecii pneumonia and gastric perforation with diffuse peritonitis; respiratory failure, now on nasal cannula - unsteady gait- has progressed to CGA for gait; ambulated 10 feet modA on evaluation - acute respiratory failure- weaning oxygen as tolerated; continues to desat with activity - acute blood loss anemia- stable - Pseudomonas UTI- treated with IV Zosyn - Anxiety/PTSD- continue lexapro - hypotension- resolved - GI/DVT px- protonix/heparin - tentative d/c home on Friday - Patient Problems (1) Debility Current Visit: Yes Status: Acute (2) Acute respiratory failure Current Visit: Yes Status: Acute Qualifiers: Respiratory failure complication: hypoxia Qualified Code(s): J96.01 - Acute respiratory failure with hypoxia (3) Anxiety Current Visit: Yes Status: Acute (4) PTSD (post-traumatic stress disorder) Current Visit: Yes Status: Acute (5) Acute blood loss anemia Current Visit: Yes Status: Acute (6) Unsteady gait Current Visit: Yes Status: Acute Subjective Date of service: 03/08/16 Principal diagnosis: Debility Interval history: Pt seen in room on today with ; IPR F/U, s/p acute respiratory failure secondary to pneumonia and gastric perforation with diffuse peritonitis. Attempting to wean oxygen; noted to have some desats into 80 with activity; denies any nausea/vomiting; no further diarrhea Objective - Constitutional Vitals: Vital Signs - 12hr 03/08/16 03/08/16 08:00 10:00 Temperature 98.4 F Pulse Rate [ 117 H Left Brachial] Respiratory 22 Rate Blood Pressure 100/66 [Left Arm] O2 Sat by Pulse 97 94 Oximetry General appearance: Present: no acute distress - EENT Eyes: EOM intact ENT: hearing intact - Neck Neck: supple, normal ROM - Respiratory Respiratory effort: normal Extremities: No edema - Gastrointestinal General gastrointestinal: Present: soft, non-tender - Integumentary Integumentary: clear - Musculoskeletal Musculoskeletal: strength equal bilaterally - Neurologic Neurologic: CNII-XII intact - Psychiatric Psychiatric: appropriate mood/affect, cooperative - Allied health notes Allied health notes reviewed: PT (CGA-SBA for transfers; CGA for gait upto 170 feet), OT (Shar to Bonny for ADLs) - Labs CBC & Chem 7: 03/06/16 06:48 03/06/16 06:48
[2016-03-08] MEDS: DESYREL PO PRN (21:52)
[2016-03-09] MEDS: SYNTHROID PO SCH (06:10)
[2016-03-09] MEDS: HEPARIN SUB-Q SCH ×3 (06:54→22:15)
[2016-03-09] MEDS: FLOMAX PO SCH (09:26)
[2016-03-09] MEDS: LEXAPRO PO SCH (09:27)
[2016-03-09] MEDS: CULTURELLE PO SCH (09:27)
[2016-03-09] MEDS: PROTONIX PO SCH ×2 (09:27→22:15)
[2016-03-09] MEDS: FLONASE NS SCH (09:30)
--- NOTE | 2016-03-09 12:44 | Progress Note ---
Assessment and Plan 60 y.o. male with diffuse large B-cell lymphoma, general debility s/p prolonged acute care and LTACH admissions for Pneumocystis jirovecii pneumonia and gastric perforation with diffuse peritonitis; respiratory failure, now on nasal cannula - unsteady gait- tolerating gait training well - acute respiratory failure- weaning oxygen as tolerated; sats above 90 with activity noted during OT - Anxiety/PTSD- continue lexapro; HR stable at rest - stage 2 sacral ulcer- wound care following; healing well with current regimen - GI/DVT px- protonix/heparin - tentative d/c home on Friday - Patient Problems (1) Debility Current Visit: Yes Status: Acute (2) Acute respiratory failure Current Visit: Yes Status: Acute Qualifiers: Respiratory failure complication: hypoxia Qualified Code(s): J96.01 - Acute respiratory failure with hypoxia (3) Anxiety Current Visit: Yes Status: Acute (4) PTSD (post-traumatic stress disorder) Current Visit: Yes Status: Acute (5) Unsteady gait Current Visit: Yes Status: Acute (6) Stage II pressure ulcer of sacral region Current Visit: Yes Status: Acute Subjective Date of service: 03/09/16 Principal diagnosis: Debility Interval history: Pt seen in dining room on today with ; IPR F/U, s/p acute respiratory failure secondary to pneumonia and gastric perforation with diffuse peritonitis. Nausea reported with smell of certain foods; no vomiting Objective - Constitutional Vitals: Vital Signs - 12hr 03/09/16 03/09/16 08:00 10:00 Temperature 97.6 F Pulse Rate [ 107 H Left Brachial] Respiratory 20 Rate Blood Pressure 113/75 [Right Arm] O2 Sat by Pulse 95 95 Oximetry General appearance: Present: no acute distress - EENT Eyes: EOM intact ENT: hearing intact - Neck Neck: supple, normal ROM - Respiratory Respiratory effort: normal - Neurologic Neurologic: CNII-XII intact, moves all extremities - Psychiatric Psychiatric: appropriate mood/affect, intact judgment & insight, memory intact, cooperative - Allied health notes Allied health notes reviewed: PT (CGA/close SBA for gait), OT (Bonny for transfers, standing activity) - Labs CBC & Chem 7: 03/06/16 06:48 03/06/16 06:48
[2016-03-09] MEDS: DESYREL PO PRN (22:26)
[2016-03-10] MEDS: SYNTHROID PO SCH (06:00)
[2016-03-10] MEDS: HEPARIN SUB-Q SCH ×3 (06:30→22:27)
[2016-03-10] MEDS: FLOMAX PO SCH (08:50)
[2016-03-10] MEDS: CULTURELLE PO SCH (08:50)
[2016-03-10] MEDS: LEXAPRO PO SCH (08:51)
[2016-03-10] MEDS: PROTONIX PO SCH ×2 (08:51→22:23)
[2016-03-10] MEDS: FLONASE NS SCH (08:51)
[2016-03-10] MEDS: DESYREL PO PRN (22:23)
[2016-03-11] MEDS: SYNTHROID PO SCH ×2 (05:59→06:02)
[2016-03-11] MEDS: HEPARIN SUB-Q SCH (06:05)
[2016-03-11] MEDS: CULTURELLE PO SCH (08:28)
[2016-03-11] MEDS: PROTONIX PO SCH (08:28)
[2016-03-11] MEDS: LEXAPRO PO SCH (08:28)
[2016-03-11] MEDS: FLOMAX PO SCH (08:28)
[2016-03-11] MEDS: FLONASE NS SCH (08:33)
[2016-03-11 09:03] VITALS: BP 129/81
--- NOTE | 2016-03-11 12:14 | Discharge Summary ---
Providers - Providers Date of Admission: 02/28/16 14:24 Date of discharge: 03/11/16 Attending physician: JERARDO FOLEY 02/28/16 14:28 Consult to Dietitian/Nutrition [CONS] Routine Physician Instructions: Reason For Exam: Reason for Consult: Poor oral intake Consult to Wound/ET Nurse [CONS] Routine Reason For Exam: wound eval, sacrum Occupational Therapy Evaluate and Treat [CONS] Routine Comment: Reason For Exam: s/p respiratory failure; debility Physical Therapy Evaluation and Treat [CONS] Routine Comment: Reason For Exam: s/p respiratory failure; debility Speech Therapy Evaluation and Treat [CONS] Routine Reason For Exam: dysphagia, cognitive screen 03/04/16 11:52 Consult to Physician [CONS] Routine Consulting Provider: MARIETTA SEGUNDO Reason For Exam: resistant UTI; pt known to you in LTAC Place consult to:: Dr Segundo Notified:: Yes Comment:: consult answering service. Primary care physician: LICHA MOON Hospitalization Reason for admission: Debility, s/p respiratory failure Condition: Stable Hospital course: 60 y.o. male recently diagnosed with non-Hodgkin's lymphoma in September 2015 and undergoing intermittent chemotherapy, who presented to [facility] secondary to progressive worsening of shortness of breath. Pt treated for acute respiratory failure due to bilateral pneumocystitis pneumonia; required intubation, treated with bactrim and high dose steroids. Acute care course was further complicated by bowel perforation s/p partial gastrectomy, pleural effusion requiring thoracentesis. Pt was transferred to [facility] on 01/30/2016 as he was unable to be weaned from vent. During LTAC course, pt was able to wean to nasal cannula; diet was advanced from TPN to regular; ABX course was completed; received ongoing wound care for stage 2 sacral decubitus ulcer. Pt was initiated into therapy when able to tolerate and was then recommended for transfer to IRU for more aggressive therapies and ongoing medical management. IRU course was significant for treatment of UTI; management of hypotension and improved tachycardia off lopressor; improvement in general debility due to prolonged hospitalization; ongoing wound care for sacral DU. On admission, pt required modA for bed mobility, transfers, and gait , ambulating 10 feet with RW; s/u to maxA for ADLs. At the time of discharge, pt has progressed to Shar for bed mobility, Bonny/CGA for transfers, ambulating 170 feet RW at supervision; Shar to supervision/SBA for ADLs. Family training was completed with and son prior to discharge. Pt is stable for d/c home. Attempts were made to wean oxygen, however, pt is still with requirement of 2L via NC. >30 mins spent of d/c process; medication reconciliation; education to pt and Disposition: DISCHARGED TO HOME OR SELFCARE - Discharge Diagnoses (1) Debility Status: Acute (2) Acute respiratory failure Status: Acute Qualifiers: Respiratory failure complication: hypoxia Qualified Code(s): J96.01 - Acute respiratory failure with hypoxia (3) Anxiety Status: Acute (4) PTSD (post-traumatic stress disorder) Status: Acute (5) Unsteady gait Status: Acute (6) Stage II pressure ulcer of sacral region Status: Acute Core Measure Documentation - Palliative Care Palliative Care/ Comfort Measures: Not Applicable - Core Measures Any of the following diagnoses?: none Exam - Constitutional Vitals: Temp Pulse Resp BP Pulse Ox 97.8 F 114 H 22 129/81 93 03/11/16 08:00 03/11/16 08:00 03/11/16 08:00 03/11/16 08:00 03/11/16 08:15 General appearance: Present: no acute distress - EENT Eyes: Present: EOM intact ENT: hearing intact - Neck Neck: Present: supple, normal ROM - Respiratory Respiratory effort: normal (ongoing need for oxygen via nasal cannula; in place) - Extremities Extremities: No edema - Integumentary Integumentary: Present: clear - Psychiatric Psychiatric: appropriate mood/affect, intact judgment & insight, memory intact, cooperative - Neurologic Neurologic: CNII-XII intact, moves all extremities Plan Activity: no driving until cleared by PCP, fall precautions Weight Bearing Status: Weight Bear as Tolerated Diet: regular Wound: per wound nurse instructions Special Instructions: physical therapy, occupational therapy, other (outpt therapies- [facility]) Durable Medical Equipment Needed Upon Discharge: Walker-Rolling, Wheelchair, Oxygen, Bedside Commode, other ([facility]- [facility]) Additional Instructions: F/U with Oncologist, Dr. Juan Humphrey Follow up with: LICHA MOON MD [Primary Care Provider] - 7 Days EPHRAIM CUETO MD [Staff Physician] - 7 Days Prescriptions: Lactobacillus Rhamnosus GG [Culturelle] 2 each PO QDAY #60 capsule Escitalopram [Lexapro] 10 mg PO QDAY #30 tablet Pantoprazole [Protonix TAB] 40 mg PO BID #60 tablet Levothyroxine [Synthroid] 125 mcg PO DAILY@0600 #30 tablet
== END 2016-03-11 13:30 | disposition home or self-care (01) | DRG 840 ==
LOC: 3B 14:24
PROVIDERS: ADMIT Family Medicine; ATTEND Family Medicine
DX: C85.90 Non-Hodgkin lymphoma, unspecified, unspecified site (principal); B59 Pneumocystosis; J96.01 Acute respiratory failure with hypoxia; K63.1 Perforation of intestine (nontraumatic); K65.9 Peritonitis, unspecified; J90 Pleural effusion, not elsewhere classified; K50.90 Crohn's disease, unspecified, without complications; D62 Acute posthemorrhagic anemia; T83.518A Infection and inflammatory reaction due to other urinary catheter, initial encounter; N17.9 Acute kidney failure, unspecified; L89.152 Pressure ulcer of sacral region, stage 2; R53.81 Other malaise; I10 Essential (primary) hypertension; E03.9 Hypothyroidism, unspecified; F43.10 Post-traumatic stress disorder, unspecified; K76.0 Fatty (change of) liver, not elsewhere classified; N40.0 Benign prostatic hyperplasia without lower urinary tract symptoms; E66.9 Obesity, unspecified; F41.9 Anxiety disorder, unspecified; D72.829 Elevated white blood cell count, unspecified; R26.81 Unsteadiness on feet; B96.5 Pseudomonas (aeruginosa) (mallei) (pseudomallei) as the cause of diseases classified elsewhere; N30.90 Cystitis, unspecified without hematuria; Z16.24 Resistance to multiple antibiotics; I95.9 Hypotension, unspecified; E87.6 Hypokalemia; Z90.49 Acquired absence of other specified parts of digestive tract; Z98.890 Other specified postprocedural states; Z87.442 Personal history of urinary calculi; Z87.891 Personal history of nicotine dependence; Z68.30 Body mass index [BMI] 30.0-30.9, adult; Z88.8 Allergy status to other drugs, medicaments and biological substances; Z82.49 Family history of ischemic heart disease and other diseases of the circulatory system; Z83.3 Family history of diabetes mellitus; Z84.1 Family history of disorders of kidney and ureter
CPT/HCPCS: 36415; 74230; 80048; 80053; 81001; 82962; 83036; 84132; 84134; 85025; 85027; 87076; 87086; 87186; 87493; 94760; J1644; J1815; J2543; Q0169